=== PATIENT | female | born 1975 ===

== ENCOUNTER 2025-05-04 12:30 | Outpatient (CLI) | payer OTHER ==
[~2025-05-04 12:30] MED LIST: IBU600 MG PO; MORGIDOX100 MG PO; MULTI VITAMIN1 EACH PO
== END 2025-05-04 12:31 | disposition home or self-care (01) ==
LOC: SONOGRAMA 12:30
PROVIDERS: ATTEND Pathology Anatomic Pathology & Clinical Pathology
DX: R59.0 Localized enlarged lymph nodes (principal)